=== PATIENT | male | born 1970 | race Caucasian/White ===

== ENCOUNTER 2020-01-19 11:07 | Outpatient (CLI) | payer OTHER, SELFPAY ==
--- NOTE | 2020-01-19 11:19 | XR_ITS ---
WS: [id number] RIGHT SHOULDER: 3 VIEW(S) TECHNIQUE: Internal and external rotation with Y view. HISTORY: Decreased range of motion. COMPARISON: 05/01/2008 No fracture or dislocation or soft tissue abnormality. Very mild narrowing of the glenohumeral joint. Minimal hypertrophic osteophyte along the inferior gle noid. Moderate narrowing without hypertrophic bone formation at the AC joint. XR/XR shoulder RT min 2V* [id number] IMPRESSION: Mild degenerative changes at the AC joint and glenohumeral joint. Minimal progr ession since the prior study from 2007.
== END 2020-01-19 11:08 | disposition home or self-care (01) ==
LOC: RAD 11:13
PROVIDERS: PCP Family Medicine; Visit Provider Dermatology
DX: Z74.09 Other reduced mobility (principal); M19.011 Primary osteoarthritis, right shoulder
CPT/HCPCS: 73030

== ENCOUNTER → 2022-04-23 15:02 | Outpatient (BNVA) | payer BC, SELFPAY | PROVIDERS: PCP Nurse Practitioner Family; Visit Provider Nurse Practitioner Family | DX: R19.7 Diarrhea, unspecified (principal) | CPT/HCPCS: 80053; 85025; 86705; 86706; 86709; 86803; 87340 ==

== ENCOUNTER → 2022-04-25 12:26 | Outpatient (BNVA) | payer BC, SELFPAY | PROVIDERS: PCP Nurse Practitioner Family; Visit Provider Nurse Practitioner Family | DX: R19.7 Diarrhea, unspecified (principal) | CPT/HCPCS: 87338; 87506 ==

== ENCOUNTER → 2022-05-06 11:45 | Outpatient (BNVA) | payer BC, SELFPAY | PROVIDERS: PCP Nurse Practitioner Family; Visit Provider Nurse Practitioner Family | DX: K52.9 Noninfective gastroenteritis and colitis, unspecified (principal) | CPT/HCPCS: 82272 ==

== ENCOUNTER 2022-06-27 08:07 | Day surgery (SDC) | payer BC, MEDICAID, SELFPAY ==
[2022-06-25 10:07] VITALS: BMI 38.8
[2022-06-27 09:02] VITALS: BP 141/89; PULSE 71; RESP 18; TEMP 36.2; O2SAT 94
[2022-06-27] MEDS: sodium chloride 0.9% 1,000 ML 30 ML IV (09:11)
--- NOTE | 2022-06-27 09:52 | ANES.PREANE2 ---
Pre-Anesthetic Assessment Height/Weight: Height 1.75 m Weight 119.295 kg Temp Pulse Resp BP Pulse Ox O2 Del Method 97.2 F L 71 18 141/89 94 06/27/22 09:02 06/27/22 09:02 06/27/22 09:02 06/27/22 09:02 06/27/22 09:02 06/27/22 09:02 Operation Date: 06/27/22 09:45 Proposed Procedures p 32563 EGD [id number] Colonoscopy K52.9(Not Applicable) - Hira Gomes DO s Colonoscopy(Not Applicable) - Hira Gomes DO Familial anesthetic complications: None Was Beta Zachary taken within 24 hours: N/A Was Clonidine taken within 24 hours: N/A Last intake: Intake Last Liquid Date 06/26/22 Last Liquid Time 23:30 Last Solid Date 06/25/22 Last Solid Time 20:00 Social Alcohol, Tobacco and No alcohol former heavy EtOH Exam alert, oriented x 3, clear to auscultation bilaterally and regular rate & rhythm Airway Mallampati: Class III Dentition: full GI Gastroesophageal Reflux Disease Metabolic Morbid Obesity Anesthetic Plan ASA status: 2 Anesthesia: MAC Risk of > 500 ml blood loss (7ml/kg in children): No Medications/Allergies Home Medications Medication Instructions Recorded Confirmed Last Taken Type No Known Home Medications 04/23/22 06/04/22 Unknown History Allergies Allergy/AdvReac Type Severity Reaction Status Date / Time Penicillins Allergy Unknown Verified 06/04/22 09:23 phenobarbital Allergy Unknown Verified 06/04/22 09:23 Current Medications Generic Name Dose Route Start Last Admin Trade Name Freq PRN Reason Stop Dose Admin Sodium Chloride 1,000 mls @ 30 mls/hr 06/27/22 08:30 06/27/22 09:11 Sodium Chloride 0.9% IV 06/28/22 08:29 30 mls/hr .Q24H PILI Administration PFSH Anesthesia Medical History Chronic diarrhea Surgical History History of brain surgery Family History Father Diabetes Hypertension Mother CAD (coronary artery disease) Cancer lung Social History Smoking and tobacco status: current every day smoker Alcohol intake: former Adopted: No Lives independently: Yes Household members: family Housing: Manufactured/Mobile home Data Anesthesia Cardiac Studies: No Data to Display
--- NOTE | 2022-06-27 09:57 | W.PM.OPSUD ---
Surgery/Procedure H&P Update DATE OF PROCEDURE: June 27, 2022 DATE H&P PERFORMED: 06/04/22 PLANNED PROCEDURE: Operation Date: 06/27/22 09:45 Proposed Procedures p [id number] EGD 15921 Colonoscopy K52.9(Not Applicable) - DO fernie Soto Colonoscopy(Not Applicable) - Hira Gomes DO
[2022-06-27 10:39] VITALS: BP 115/73; PULSE 80; RESP 16; TEMP 36.1; O2SAT 94
[2022-06-27 10:52] VITALS: BP 123/84; PULSE 82; RESP 18; O2SAT 94
--- NOTE | 2022-06-27 17:08 | ANE.PACU2 ---
Inpatient post-anesthesia follow up: Airway intact: Yes Vital signs: Temperature 97 F Pulse Rate 82 Respiratory Rate 18 Blood Pressure 123/84 Pulse Oximetry 94 Oxygen Delivery Me thod Room Air Oxygen Flow Rate 2 Fraction of Inspir ed Oxygen Hydration adequate: Yes Nausea and vomiting: No Pain level: 1 Mental status: Baseline
== END 2022-06-27 11:14 | disposition home or self-care (01) ==
PROVIDERS: PCP Nurse Practitioner Family; Visit Provider Surgery
PROC: 0DJD8ZZ Inspection of Lower Intestinal Tract, Via Natural or Artificial Opening Endoscopic (ICD-10-PCS; CPT 45378; 2022-06-27 09:45)
PROC: 0DJ08ZZ Inspection of Upper Intestinal Tract, Via Natural or Artificial Opening Endoscopic (ICD-10-PCS; CPT 43235; 2022-06-27 09:45)
DX: K52.9 Noninfective gastroenteritis and colitis, unspecified (principal); K64.8 Other hemorrhoids; K29.80 Duodenitis without bleeding; K29.50 Unspecified chronic gastritis without bleeding; D12.4 Benign neoplasm of descending colon; D12.8 Benign neoplasm of rectum; K21.9 Gastro-esophageal reflux disease without esophagitis; E66.01 Morbid (severe) obesity due to excess calories; Z68.38 Body mass index [BMI] 38.0-38.9, adult; F17.210 Nicotine dependence, cigarettes, uncomplicated
CPT/HCPCS: 43239; 45380; 45385; 82274; 83630; 87493; 87506; 88305; J2704; J7030

== ENCOUNTER 2022-12-02 09:31 | Emergency (ER) | payer BC, MEDICAID, SELFPAY ==
--- NOTE | 2022-12-02 09:32 | W.ED.LOWEXIN ---
HPI - Extremity Injury (Lower) General: Stated Complaint: LT foot injury Time Seen by Provider: 12/02/22 09:32 PFSH ED PFSH: Medical History Chronic diarrhea Surgical History History of brain surgery Family History Father Diabetes Hypertension Mother CAD (coronary artery disease) Cancer lung Social History Smoking and tobacco status: current every day smoker Alcohol intake: former Substance/Drug Use: former Adopted: No Lives independently: Yes Household members: family Housing: Manufactured/Mobile home Discharge Plan Discharge Condition: Stable Prescriptions: No Action Protonix 40 mg tablet,delayed release (DR/EC) 40 mg PO BID 42 Days Qty: 84 1RF Referrals: Julia Crump FNP [Primary Care Provider] - Coding Level of Care Code ED It Network Administrator for Breana Galindo
--- NOTE | 2022-12-02 09:41 | XR_ITS ---
WS: [id number] Exam: XR foot LT min 3V* [id number] Date/Time of Exam: 12/02/2022 9:44 AM Reason For Exam: pain No acute fracture or dislocation. No soft tissue foreign bodies are seen. Small posterior heel spur. XR/XR foot LT min 3V* [id number] IMPRESSION: 1. No fracture or other significant finding.
--- NOTE | 2022-12-02 09:42 | W.ED.EXTPRO ---
HPI - Extremity Problem General: Chief complaint: Extremity Injury, Lower Stated complaint: LT foot injury Time Seen by Provider: 12/02/22 09:32 Source: patient Mode of arrival: ambulatory Limitations: no limitations History of Present Illness: Patient is a 52-year-old female presents to ED today with complaint of pain to the dorsum of his left midfoot. He states he first noticed pain about 2 days ago. He denies any known injury or trauma but does at some point remember hearing/feeling something pop in the foot. He states this morning he noticed the foot was swollen although this of subsided upon arrival to the ED. He states he was seen at [facility] yesterday and had an x-ray performed but was told we cannot read it and was subsequently discharged home. He has not noticed any redness or warmth to the foot. No toe pain. No history of gout. No recent sores, cuts, abrasions, lacerations. MD Complaint: extremity pain Onset (ago): day(s) Pain Consistency: constant Location: left and lower extremity Radiation: none Relieving factors: immobilization Exacerbating factors: range of motion, weight bearing and walking Associated symptoms: Reports no associated symptoms; Deny chest pain, fever(s) or rash Review of Systems Const: Denies: fever(s), chills, body aches, fatigue or malaise Card: Denies: chest pain Resp: Denies: dyspnea Musc: Reports: extremity pain and extremity swelling (subsided now); Denies: neck pain, back pain, joint pain, joint swelling, joint redness or joint warmth Skin/Breast: Denies: rash Neuro: Denies: numbness in extremities, weakness in extremities or sensory changes PFS ED PFSH: Medical History Chronic diarrhea Surgical History History of brain surgery Family History Father Diabetes Hypertension Mother CAD (coronary artery disease) Cancer lung Social History Smoking and tobacco status: current every day smoker Alcohol intake: former Substance/Drug Use: former Adopted: No Lives independently: Yes Household members: family Housing: Manufactured/Mobile home Physical Exam Const: COMMON NORMALS: no acute distress, patient oriented x3, no limitations and alert GENERAL APPEARANCE: cooperative NUTRITIONAL APPEARANCE: obese ORIENTATION/CONSCIOUSNESS: Yes awake, Yes oriented to person, Yes oriented to place and Yes oriented to time Resp: COMMON NORMALS: normal respiratory effort Cardio: COMMON NORMALS: regular rate and regular rhythm RATE: regular rate RHYTHM: regular rhythm Extremity: COMMON NORMALS: full ROM, capillary refill normal, no joint enlargement, no clubbing, cyanosis or edema, no calf tenderness and no pedal edema GENERAL: Yes normal exam except as noted LEFT LOWER EXTREMITY: Yes foot & digits OTHER: TTP dorsal midfoot without erythema, ecchymosis, or edema noted; DP/PT pulses present, cap refill and sensation normal; pain worse with palpation and movement; no ankle pain/restricted ROM noted Neuro: COMMON NORMALS: patient oriented x3, moves all extremities, no focal motor deficits, no sensory deficits noted and gait normal (patient walked to his room without difficulty ) SENSORIUM/ORIENTATION: Yes alert, Yes oriented to person, Yes oriented to place and Yes oriented to time Skin: COMMON NORMALS: no rashes or lesions noted GENERAL SKIN EXAM: no rashes or lesions noted TRAUMA: no lacerations or abrasions Course Vital Signs: Vital signs: Vital Signs Temperature 97.9 F 12/02/22 09:44 Pulse Rate 92 12/02/22 09:44 Respiratory Rate 20 H 12/02/22 09:44 Blood Pressure 139/103 12/02/22 09:44 Pulse Oximetry 94 12/02/22 09:44 Oxygen Delivery Me thod Room Air 12/02/22 09:44 MDM - Extremity (Nontraumatic) Medical Decision Making Personal interpretations of patient's XR is negative. Do not have any suspicion at this time for any type of infection or gout etiology. Recommend ice, elevation, compression. Follow up with PCP in 1-2 weeks if symptoms to not improve. Discharge Plan Discharge Patient Disposition: Home Clinical Impression: Acute pain of left foot Condition: Stable Prescriptions: No Action Protonix 40 mg tablet,delayed release (DR/EC) 40 mg PO BID 42 Days Qty: 84 1RF Discharge Orders: Discharge ED (Routine); Ordered 12/02/22 Ordered By: Paige Camp Referrals: Julia Crump FNP [Primary Care Provider] - Coding Level of Care Code ED Supervisor [employer] for Breana Galindo
[2022-12-02 09:44] VITALS: BP 139/103; PULSE 92; RESP 20; TEMP 36.6; O2SAT 94
== END 2022-12-02 10:28 | disposition home or self-care (01) ==
PROVIDERS: Emergency Provider Physician Assistant; PCP Nurse Practitioner Family
DX: M79.672 Pain in left foot (principal); F17.210 Nicotine dependence, cigarettes, uncomplicated
CPT/HCPCS: 73630; 99283

== ENCOUNTER 2023-10-31 08:31 | Outpatient (CLI) | payer BC, MEDICAID, SELFPAY ==
--- NOTE | 2023-10-31 08:33 | CT_ITS ---
WS: [id number] CT ABDOMEN PELVIS TECHNIQUE: Contrast-enhanced CT of the abdomen and pelvis with coronal and sagittal reformatted image s. CLINICAL INFORMATION: NONINFECTIVE GASTROENTERITIS COLLITIS COMPARISON: None. DLP: 952.[address] scans at [facility] use at least one of these dose optimization techniques: automated e xposure control; mA and/or kV adjustment per patient size (includes targeted exams where dose is matc hed to clinical indication); or iterative reconstruction. FINDINGS: Slight subsegmental atelectasis in the lung bases. Hepatomegaly. Diffuse fatty infiltration of the li jimmie. Normal gallbladder. Normal spleen. Normal GE junction. Mild fatty atrophy of the pancreas. Citlaly l portal vein and splenic vein. Celiac and SMA are patent. Normal caliber abdominal aorta. Mild aorti c calcification. Adrenal glands are normal. Small RIGHT renal cyst measuring 2.2 cm. Tiny LEFT renal cysts. Sigmoid diverticulosis. No evidence of acute diverticulitis. Normal appendix in the RIGHT lower quadr ant. No evidence of acute appendicitis. Colon is otherwise normal in appearance. Normal small bowel. No abdominal or pelvic lymphadenopathy. Small fat-containing inguinal hernias. Schmorl's node superio r endplate L4. No other suspicious findings. CT/CT abdomen pelvis w con* [id number] IMPRESSION: 1. Sigmoid diverticulosis. No evidence of acute diverticulitis. 2. Colon is otherwise normal in appearance. 3. Mild prostate enlargement measuring 4.1 cm 4. Normal appendix. No evidence of acute appendicitis. 5. Hepatomegaly with diffuse fatty infiltration of the liver. 6. A few small renal cysts. 7. Mild aortic calcification. 8. No other acute findings.
[2023-10-31] MEDS: iohexol 350 mg/mL 500 mL Btl (per mL) IV (10:13)
[2023-10-31] MEDS: iohexol 350 mg/mL 500 mL Btl (per mL) PO (10:14)
== END 2023-10-31 08:32 | disposition home or self-care (01) ==
LOC: RAD 08:31
PROVIDERS: PCP Nurse Practitioner Family; Visit Provider Nurse Practitioner
DX: K57.90 Diverticulosis of intestine, part unspecified, without perforation or abscess without bleeding (principal); R16.0 Hepatomegaly, not elsewhere classified; M51.46 Schmorl's nodes, lumbar region
CPT/HCPCS: 74177; Q9967

== ENCOUNTER 2024-03-11 10:14 | Outpatient (CLI) | payer BC, MEDICAID, SELFPAY ==
--- NOTE | 2024-03-11 10:18 | CT_ITS ---
WS: [id number] LDCT LUNG CANCER SCREENING TECHNIQUE: Noncontrast CT of the chest with coronal and sagittal reformatted images. CLINICAL INFORMATION: NICOTINE DEPENDENCE COMPARISON: None. DLP: 101.19 mGy.cm DIvol: Mean CTDIvol: 2.50 (mGy) All CT scans at [facility] use at least one of these dose optimization techniques: automat ed exposure control; mA and/or kV adjustment per patient size (includes targeted exams where dose is matched to clinical indication); or iterative reconstruction. FINDINGS: No suspicious pulmonary parenchymal abnormalities. Splenic granulomas. Tiny esophageal hiatal hernia. Adrenal glands are normal. No mediastinal or hilar lymphadenopathy. No axillary lymphadenopathy. Normal caliber thoracic aorta. Slight bibasilar atelectasis. Mild thoracic curve. Mild thoracic kyphosis. Hypertrophic changes thora cic spine. CT/CT lung screening [id number] IMPRESSION: LUNG-RADS: 1-Negative FOLLOW UP: 12 Month: Continue annual screening with LDCT
== END 2024-03-11 10:15 | disposition home or self-care (01) ==
LOC: RAD 10:16
PROVIDERS: PCP Nurse Practitioner Family; Visit Provider Nurse Practitioner Family
DX: Z12.2 Encounter for screening for malignant neoplasm of respiratory organs (principal); J84.10 Pulmonary fibrosis, unspecified
CPT/HCPCS: 71271